=== PATIENT | male | born 1945 | race Two or more races ===

== ENCOUNTER 2019-01-07 05:49 | Inpatient (IN) | payer OTHER ==
[2019-01-07] VITALS (13 sets, daily range): BP systolic 100–130; BP diastolic 49–86
[~2019-01-07] VITALS: Ht 167.6 cm; Wt 81.6 kg
[~2019-01-07 05:49] MED LIST: NKM; NORCO 10-325 T1 EACH ORAL; SOMA350 MG PO
[2019-01-07] MEDS ORDERED: LR 1000ml 1,000 ML IVLG SCH (06:13)
[2019-01-07] MEDS ORDERED: Midazolam 2mg/2ml Inj IVP PRN (06:15)
[2019-01-07] MEDS ORDERED: Meperidine 50mg/ml Inj(FOR RIGORS ONLY) IVP PRN (06:15)
[2019-01-07] MEDS ORDERED: HYDROcodone/Acetamin 7.5/325 tab ORAL PRN ×2 (06:15→14:30)
[2019-01-07] MEDS ORDERED: Atropine Sulfate 0.4mg/ml inj IVP PRN (06:15)
[2019-01-07] MEDS ORDERED: LORazepam Inj 2mg/ml 1ml IV PRN (06:15)
[2019-01-07] MEDS ORDERED: Ketorolac 30mg Inj IV PRN ×2 (06:15)
[2019-01-07] MEDS ORDERED: HYDROcodone/Acetamin 5/325 tab ORAL PRN ×2 (06:15→14:30)
[2019-01-07] MEDS ORDERED: oxyCODONE HCL/Acetaminophen 5/325mg ORAL PRN (06:15)
[2019-01-07] MEDS ORDERED: fentaNYL 100 mcg/2 mL IV PRN (06:15)
[2019-01-07] MEDS ORDERED: Hydromorphone 0.5mg/0.5ml inj IVP PRN (06:15)
[2019-01-07] MEDS ORDERED: Labetalol 5mg/ml 20ml vial IV PRN (06:15)
[2019-01-07] MEDS ORDERED: DiphenhydrAMINE 50mg/ml Inj IVP PRN (06:15)
[2019-01-07] MEDS ORDERED: Acetaminophen (Non formulary) 100 ML IV ONE (06:15)
[2019-01-07] MEDS ORDERED: Metoclopramide 10mg/2ml Inj IVP PRN ×2 (06:15→14:00)
--- NOTE | 2019-01-07 06:15 | Anethesia Preoperative Eval ---
Anesthesia Pre-op PMH/ROS General Date of Evaluation: Jan 07, 2019 Time of Evaluation: 07:11 Anesthesiologist: Yocasta ASA Score: ASA 3 Mallampati Score Class I : Soft palate, uvula, fauces, pillars visible Class II: Soft palate, uvula, fauces visible Class III: Soft palate, base of uvula visible Class IV: Only hard plate visible Mallampati Classification: Class II Surgeon: Alistair Diagnosis: Back Pain Surgical Procedure: ALIF L5-S1, PSF L5-S1 Anesthesia History: none Family History: no anesthesia problems Allergies: Coded Allergies: No Known Allergies (Unverified , 01/07/19) Medications: see eMAR Patient NPO?: Yes Past Medical History Cardiovascular: Reports: HTN, other - HL Other: obesity - BMI 30 PSxH Narrative: R Shoulder, Cervical SX Anesthesia Pre-op Phys. Exam Physician Exam Vital Signs Date Time Temp Pulse Resp B/P (MAP) Pulse Ox O2 Delivery O2 Flow Rate FiO2 01/07/19 06:38 97.3 84 18 106/86 (93) 96 01/07/19 07:00 Room Air Constitutional: NAD Neurologic: CN 2-12 intact Cardiovascular: RRR Respiratory: CTA Gastrointestinal: S/NT/ND Airway Exam Mallampati Score: Class II MO: full ROM: limited Teeth: missing, intact Anesthesia Pre-op A/P Risk Assessment & Plan Assessment: ASA 3 Plan: GA Status Change Before Surgery: No Pre-Antibiotics Dru Grams Ancef IV Given Within 1 Hr of Incision: No Time Given: 07:31 Clay Rust MD Jan 07, 2019 06:15
[2019-01-07] MEDS ORDERED: Rocuronium Bromide 50mg/5ml Inj IV ONE (06:21)
[2019-01-07] MEDS ORDERED: Heparin 5000 units/ml inj ONE (06:35)
[2019-01-07] MEDS ORDERED: Thrombin 5000 units TOPIC ONE (06:36)
[2019-01-07] MEDS ORDERED: Ropivacaine 5mg/ml Vial 30ml INJ ONE ×2 (06:36→11:38)
[2019-01-07] MEDS ORDERED: Bacitracin 50000 Units Vial ONE (06:36)
[2019-01-07] MEDS ORDERED: Gelfoam Size TOPIC ONE (06:36)
[2019-01-07] MEDS ORDERED: Bupivacaine w/Epi 0.5% 30ml Vial INJ ONE (06:36)
[2019-01-07] MEDS ORDERED: Vancomycin 1gm vial IVPB ONE ×2 (06:37→09:42)
[2019-01-07] MEDS ORDERED: Lidocaine 1% MPF 10mg/ml 5ml ONE (06:42)
[2019-01-07] MEDS ORDERED: Sodium Chloride 10ml vial INJ ONE (06:42)
[2019-01-07] MEDS ORDERED: Dexamethasone 4mg/ml vial ONE (06:42)
[2019-01-07] MEDS ORDERED: ALENDRONATE SOD10 MG ORAL (06:49)
[2019-01-07] MEDS ORDERED: AMLODIPINE BESYL5 MG ORAL (06:49)
[2019-01-07] MEDS ORDERED: Neostigmine 1mg/ml 10ml Inj ONE (07:00)
[2019-01-07] MEDS ORDERED: ceFAZolin sod 2 GM in NS 55 ML IVPB ONE (07:00)
[2019-01-07] MEDS ORDERED: Sterile Water Irrig 1000ml IRRIG ONE (07:00)
[2019-01-07] MEDS ORDERED: Propofol 1,000mg/ 100ml btl IV ONE (07:00)
[2019-01-07] MEDS ORDERED: NS Irrig 1000ml ONE (07:00)
[2019-01-07] MEDS ORDERED: LR 1000ml ONE (07:00)
[2019-01-07] MEDS ORDERED: Glycopyrrolate 0.2mg/ml 1ml Vial ONE (07:00)
[2019-01-07] MEDS ORDERED: fentaNYL 100 mcg/2 mL IV ONE ×2 (07:01→11:06)
[2019-01-07 07:06] LABS: ANION GAP 11 mmol/L (5-15); BLOOD UREA NITROGEN 14 mg/dL (7-18); CALCIUM 8.4 MG/DL (8.5-10.1); CARBON DIOXIDE 23 MMOL/L (21-32); CHLORIDE 109 MMOL/L (98-107); CREATININE 1.2 MG/DL (0.55-1.30); POTASSIUM 3.6 MMOL/L (3.5-5.1); SODIUM 143 MMOL/L (136-145)
[2019-01-07 07:08] LABS: INR 0.9 (0.9-1.1)
[2019-01-07 07:09] LABS: BASOPHILS % (AUTO) 1.2 % (0.0-2.0); EOSINOPHILS % (AUTO) 9.6 % (0.0-3.0); HEMATOCRIT 44.9 % (42.0-52.0); LYMPHOCYTES % (AUTO) 22.5 % (20.0-45.0); MEAN CORPUSCULAR VOLUME 87 FL (80-99); NEUTROPHILS % (AUTO) 58.8 % (45.0-75.0); PLATELET COUNT 267 K/UL (150-450); RED BLOOD COUNT 5.16 M/UL (4.70-6.10); RED CELL DISTRIBUTION WIDTH 11.2 % (11.6-14.8); WHITE BLOOD COUNT 8.4 K/UL (4.8-10.8)
--- NOTE | 2019-01-07 07:58 | Immediate Post-Op Evaluation ---
Immediate Post-Op Evalulation Immediate Post-Op Evalulation Procedure: ALIF L5-S1, PSF L5-S1 Date of Evaluation: Jan 07, 2019 Time of Evaluation: 14:52 IV Fluids: 1300 LR Blood Products: 0 Estimated Blood Loss: 75 Urinary Output: 150 Blood Pressure Systolic: 124 Blood Pressure Diastolic: 70 Pulse Rate: 94 Respiratory Rate: 16 O2 Sat by Pulse Oximetry: 99 Temperature (Fahrenheit): 98 Pain Score (1-10): 2 Nausea: No Vomiting: No Complications 0 Patient Status: awake, reacts, patent, extubated, none Hydration Status: adequate Dru Grams Ancef IV Given Within 1 Hr of Incision: Yes Time Given: 07:31 Clay Rust MD Jan 07, 2019 07:58
[2019-01-07] MEDS ORDERED: ePHEDrine 50mg/ml Inj ONE (08:18)
--- NOTE | 2019-01-07 09:00 | Consultation ---
DATE OF CONSULTATION: 01/07/2019 VASCULAR SURGERY CONSULTATION CONSULTING PHYSICIAN: Anshul Hsu M.D. The patient is a 73-year-old male, who was admitted to undergo anterior lumbar interbody fusion of L5-S1 as determined by his spine surgeon, Dr. Eddie Sainz. Prior to today, the patient would typically have received my separate informed consent form, but the patient does not recall receiving these documents from my office. This form would introduce me and explain my role in the approach for the anterior lumbar spine surgery. It also outlined the possible risks and complications, including but not limited to hemorrhage, need for blood transfusions, retrograde ejaculation, wound infection, bowel or ureter injury, arterial or venous injury or thrombosis, and the remote chance of , etc. The patient was seen in the preoperative holding area with his daughter in attendance and was given the separate informed consent form, which was reviewed and all questions were answered. He was shown the site of the incision. He had palpable bilateral dorsalis pedis pulses. He was 5 feet 6 inches tall, weighing approximately 180 pounds, giving him a BMI of 29. That consent was signed once again with a nurse witness and signature as well, and then placed into the chart. He fully understood and wished to proceed. There were no contraindications and we would proceed with the proposed operation. Modesto Hutson JOB#: [id number] CC:
[2019-01-07] MEDS ORDERED: Bacitracin 50000 Units Vial IRRIG ONE (09:45)
--- NOTE | 2019-01-07 09:56 | Pre-Procedure Note/Attestation ---
Pre-Procedure Note/Attestation Complete Prior to Procedure Planned Procedure: not applicable Procedure Narrative: Stage 1 Anterior lumbar interbody fusion of L5S1 with bmp and allograft, Stage 2 Posterior wood laminectomy/dobbins shepherd osteotomy and pedicle screw fixation of L5S1 Indications for Procedure Pre-Operative Diagnosis: L5S1 Herniation and foraminal stenosis Attestation I attest that I discussed the nature of the procedure; its benefits; risks and complications; and alternatives (and the risks and benefits of such alternatives ), prior to the procedure, with the patient (or the patient's legal insurance representative). I attest that, if there was a reasonable possibility of needing a blood transfusion, the patient (or the patient's legal insurance representative) was given the [place] Department [employer] standardized written summary, pursuant to the Kelvin Nadir Blood Safety Act ([place] Health and Safety Code # 1645, as amended). I attest that I re-evaluated the patient just prior to the surgery and that there has been no change in the patient's H&P, except as documented below: Eddie Sainz MD Jan 07, 2019 09:56
--- NOTE | 2019-01-07 09:57 | Brief Operative Note ---
Immediate Post Operative Note Operative Note Chief Complaint: back pain and radiculopathy Pre-op Diagnosis: L5S1 Herniation and foraminal stenosis Procedure: Stage 1 Anterior lumbar interbody fusion of L5S1 with bmp and allograft, Stage 2 Posterior wood laminectomy/dobbins shepherd osteotomy and pedicle screw fixation of L5S1 Post-op Diagnosis: same as pre-op Findings: consistent w/pre-op dx studies Surgeon: Alistair Class C Truck Driver: Araceils Anesthesiologist: Yocasta Anesthesia: general Specimen: none Complications: none Condition: stable Fluids: IVF Estimated Blood Loss: minimal Drains: none Implant(s) used?: Yes - Stage 1 Nuvasive interlock sz 16, screws 25mmx4, Stage 2 synthes emergent 4x40mm Eddie Sainz MD Jan 07, 2019 09:57
[2019-01-07] MEDS ORDERED: Chloraseptic Spray 20mL Bottle ORAL PRN (10:00)
--- NOTE | 2019-01-07 11:05 | NUR ---
CASE MANAGEMENT:REVIEW 73 YR OLD MALE HERE FOR ELECTIVE SURGERY SI: BACK PAIN AND RADICULOPATHY 97.3//84 18 106/86 96% ON RA IS: TO SURGERY: ANTERIOR LUMBAR INTERBODY FUSION IV ANCEF Q8HRS IV DECADRON Q6HRS IVF@100/HR : TO MED/SURG POST OP
--- NOTE | 2019-01-07 12:37 | 48 Hour Post Anesthesia Eval ---
Post Anesthesia Evaluation Procedure: ALIF L5-S1, PSF L5-S1 Date of Evaluation: Jan 07, 2019 Time of Evaluation: 14:45 Blood Pressure Systolic: 124 0: 72 Pulse Rate: 81 Respiratory Rate: 16 Temperature (Fahrenheit): 98.2 O2 Sat by Pulse Oximetry: 97 Airway: patent Nausea: No Vomiting: No Pain Intensity: 3 Cardiopulmonary Status: Stable Mental Status/LOC: patient returned to baseline Follow-up Care/Observations: 0 Post-Anesthesia Complications: 0 Follow-up care needed: N/A Clay Rust MD Jan 07, 2019 12:37
--- NOTE | 2019-01-07 13:45 | NUR ---
NURSE NOTES: Shauna LU brought patient by bed in stable condition. Alert and oriented x4. No complain of pain or distress at this time. Skin intact and dry. Surgical dressing intact and dry. IV dressing intact and dry. Lau catheter patent and draining well. Bed lowest position. Call light within reach. Will continue to monitor.
[2019-01-07] MEDS ORDERED: Morphine Sulfate 2mg/ml Inj(IV/IM USE ONLY) IV PRN (14:00)
[2019-01-07] MEDS ORDERED: Morphine Sulfate 4mg/ml Inj (IV USE ONLY) IV PRN ×2 (14:00)
[2019-01-07] MEDS ORDERED: Naloxone 0.4mg/ml Inj IVP PRN (14:00)
--- NOTE | 2019-01-07 14:22 | NUR ---
NURSE NOTES: Spoke to regarding home medications and new order received. Order read back and carried out.
[2019-01-07] MEDS ORDERED: HYDROmorphone 1mg/ml Carpuject IVP PRN (14:30)
[2019-01-07] MEDS ORDERED: Milk of Magnesia 30ml Ud ORAL PRN (14:30)
--- NOTE | 2019-01-07 15:14 | NUR ---
HAND-OFF: Report given to Jose LU and Rosi LU. Patient in stable condition.
--- NOTE | 2019-01-07 15:20 | NUR ---
NURSE NOTES: Received report from TABITHA Oliveros. Rounding done with outgoing nurse. Pt a/o x 4, in bed. No respiratory distress noted. Denies any pain at this time. Family is at bedside. Lau catheter is in placed, yellowish color noted. Abdominal/back surgical site dressing is C/D/I. Call light within reach. Will continue to monitor.
[2019-01-07] MEDS: ceFAZolin sod 1 GM in D5W 55 ML IV SCH ×2 (15:22→23:13)
[2019-01-07] MEDS: NS w/KCl 20mEq 1000ml 1,000 ML IV SCH (15:22)
--- NOTE | 2019-01-07 16:45 | Operative Note - Dictated ---
DATE OF OPERATION: 01/07/2019 OPERATION: 1. Muscle sparing anterior abdominal retroperitoneal approach for anterior lumbar interbody fusion. 2. Plastic closure repair of abdominal wound. CO-SURGEONS: 1. Anshul Hsu M.D. 2. Eddie Sainz M.D. ANESTHESIA: General. PREOPERATIVE DIAGNOSIS: Herniated disk, L5-S1. POSTOPERATIVE DIAGNOSIS: Herniated disk, L5-S1. PROCEDURE IN DETAIL: Prior to surgery, the patient would typically have received my separate informed consent form mailed to his home with other documents as the patient does not recall receiving such documents. This form introduced me and explains my role in the approach for the anterior lumbar spine surgery. It also outlines the possible risks and complications, including, but not limited to hemorrhage, need for blood transfusion, wound infection, retrograde ejaculation, bowel or ureter injury, arterial or venous injury or thrombosis, and the remote chance of , etc. The patient was seen in the preoperative holding area with his daughter in attendance and was given the separate informed consent form, which was reviewed and any questions were answered. He was shown the site of the incision. He had palpable bilateral dorsalis pedis pulses. That consent was signed with a nurse witness and signature as well, and then placed into the chart. He fully understood and wished to proceed. There were no contraindications and we would proceed with the proposed operation. A preoperative vascular surgery consultation report was dictated. The patient was taken into the operating room and placed in the supine position. Using an endotracheal tube, he was placed under general anesthesia without difficulty. His abdomen was prepped and draped in the usual sterile manner. An appropriate time-out was obtained. A transverse incision was made in the left lower quadrant from the midline and carried down through the subcutaneous tissues down to the rectus fascia. Hemostasis was achieved using electrocautery. The rectus fascia was incised transversely and elevated off the anterior surface of the muscle for a distance of approximately 4 cm both caudad and cephalad. This would allow for retraction of the rectus muscle laterally later in the case noted to obtain direct anterior-posterior approach to the anterior surface of the spine. The inferior epigastric vessels were identified and preserved. Laterally, the retroperitoneal space was entered down to the left psoas muscle. The left ureter was identified and protected as it was mobilized with the peritoneum more medially until the left iliac artery was identified. Deep self-retaining retractors such as the [place] and [place] were utilized to hold the abdominal wall and peritoneal contents in place while further dissection was carried out. Careful blunt dissection was carried out below the bifurcation of the iliac vessels with several medial branches of the iliac vein were taken between hemoclips and transected. The middle sacral artery was taken between hemoclips and transected. Careful blunt dissection was carried out to preserve the sympathetic chains laterally as well as the parasympathetic plexus which lies anteriorly along the surface of the fifth lumbar vertebra. Further careful blunt dissection was utilized to expose the anterior surface of the multiple vertebral bodies and intervening disk space. Several retractor blades were now placed in all quadrants with the rectus muscle now retracted laterally, which allowed exposure and direct anterior-posterior approach to the anterior surface of the spine. A needle was inserted into the appropriate disk space and an x-ray was taken to verify the exposure. The spine surgeon then proceeded to perform diskectomy and fusion, which will be dictated in a separate report by the spine surgeon, Dr. Sainz. Antibiotic irrigation had been carried out. Tisseel was placed over the fusion area. Vancomycin powder was left in the wound. The retractor blades were removed. The integrity of the iliac vessels were then checked to make sure that there was no tear or thrombosis of the vein and that there was adequate flow through the artery with no evidence of spasm or thrombosis. A further check for hemostasis was made and the integrity of the ureter was verified. The peritoneum was allowed to return to its anatomical location and then anterior sheath approximated using continuous running suture of #1 Vicryl. The subcutaneous tissues were irrigated using dilute Betadine solution as well as antibiotic solution and hemostasis noted to be achieved. Plastic closure repair of the abdominal wound was continued using 2-0 Vicryl followed by skin approximation using continuous subcuticular suture of 3-0 Monocryl. Steri-Strips were applied. Telfa OpSite dressings were applied. The sponge, pads, needle, and instrument counts were reported as correct. Estimated blood loss was less than 50 mL. There were no complications during this part of the procedure. At completion of this part of the procedure, the patient had maintenance of palpable bilateral dorsalis pedis pulses and the pulse oximeter registered 100% on the left foot. The patient will remain in the operating room to undergo posterior instrumentation by the spine surgeon. Anshul Hsu M.D. DR: Cristina JOB#: [id number] CC:
[2019-01-07] MEDS: Dexamethasone 4mg/ml vial IVP SCH (17:47)
[2019-01-07] MEDS: Docusate 100mg cap ORAL SCH (17:47)
--- NOTE | 2019-01-07 19:41 | NUR ---
HAND-OFF: Report given to TABITHA Richardson. Pt is stable.
--- NOTE | 2019-01-07 19:42 | NUR ---
NURSE NOTES: received patient on bed, awake and verbally responsive. no SOB. not in any form of respiratory distress. denies any pain or discomfort.bed locked and in lowest position. call light and light button within easy reach. will continue plan of care.
--- NOTE | 2019-01-07 20:23 | NUR ---
NURSE NOTES: patient c/o pain on the surgical site in the lower abdomen. no bleeding or discharges on the site. norco 5/325mg given as ordered. offered fluids. assisted on repositioning. needs attended and met. bed locked and in lowest position. call light and light button within easy reach. will continue plan of care.
[2019-01-08] VITALS: BP 131/81
[2019-01-08] MEDS: Dexamethasone 4mg/ml vial IVP SCH ×3 (00:16→11:55)
[2019-01-08] MEDS: NS w/KCl 20mEq 1000ml 1,000 ML IV SCH ×3 (00:19→20:14)
--- NOTE | 2019-01-08 00:45 | Operative Note - Dictated ---
DATE OF OPERATION: 01/07/2019 Stage 1 of 2. SURGEON: Eddie Sainz M.D., Orthopaedic Spine Surgeon. EXPOSURE/SEWING MACHINE OPERATOR PLASTIC ZIPPER SURGEON: Anshul Hsu M.D. ANESTHESIA: General endotracheal anesthesia. PREOPERATIVE DIAGNOSES: 1. Intractable back pain. 2. Intractable leg pain. 3. Worsening radiculopathy. 4. Weakness. 5. Herniated nucleus pulposus, L5-S1 herniation. 6. Neural foraminal stenosis, L5-S1 herniation. POSTOPERATIVE DIAGNOSES: 1. Intractable back pain. 2. Intractable leg pain. 3. Worsening radiculopathy. 4. Weakness. 5. Herniated nucleus pulposus, L5-S1 herniation. 6. Neural foraminal stenosis, L5-S1 herniation. PROCEDURES PERFORMED: 1. Radical anterior lumbar intervertebral L5-S1 discectomy. 2. Anterior lumbar interbody fusion using NuVasive Brigade size 16 mm, 12-degree, with medium BMP and 5 mL of [place] allograft bone. 3. Anterior lumbar plating and fixation at L5-S1 using #4 screws from NuVasive 25 mm length 4. Anterior retroperitoneal exposure. 5. Supervision and interpretation of intraoperative fluoroscopy. 6. Supervision and interpretation of somatosensory-evoked potential and free-running EMG monitoring. ESTIMATED BLOOD LOSS: <100 mL. COMPLICATIONS: None. INDICATIONS FOR THE PROCEDURE: The patient is a 73-year-old male who presents for intractable back pain and radiculopathy, which is well documented in our clinical chart and records. We had a long discussion with Peter regarding definitive surgical treatment options. We had a long discussion with the patient regarding the risks, alternatives, and benefits of procedure. Our description of the risks included a discussion in person as well as a signed consent, which detailed all pertinent risks and the procedure itself. Briefly, our discussion included but was not limited to infection, bleeding, pseudarthrosis, spinal cord injury, neurovascular injury, dural tear, CSF leak, neuropathy, paralysis, permanent weakness/drop foot, paresthesias, blindness, palsy, and weakness. The patient understood there may be a need for revision surgery or additional procedures. Approach-related complications including dysphonia, dysphagia, blindness, permanent vocal cord and neural injury, hematoma, swallowing and breathing difficulty; medical complications including liver, kidney, shock, and cardiopulmonary failure; anesthesia complications including , swelling, damage to the musculature, larynx, esophagus, trachea, blood vessels and muscles and lungs during this surgical procedure. Injury to deeper structures may be temporary or permanent. The patient understood these and elected to proceed. A written and verbal consent was given. We discussed the pros and cons of all the alternatives. We discussed the uncertainties associated with the decision. Afterwards I assessed the patients understanding and explored their preferences. All questions were answered and no guarantees were given. Medical clearance was obtained prior to surgery. INTRAOPERATIVE FINDINGS: L5-S1 demonstrated a disc with decreased disc height. Once the disc was evaluated, along its posterior margin, I noted a tear in the posterior longitudinal ligament. This tear communicated with the posterior margins of a disc herniation. This disc was resected with a combination of Kerrison rongeurs and pituitaries. It was causing encroaching on the thecal sac posteriorly, right more than left side. DESCRIPTION OF PROCEDURE: Under the benefit of general endotracheal anesthesia and with the assistance of the entire operative team, the patient was moved from the rtioga onto the operative table in the supine position on a radiolucent frame. The head was secured and positioned appropriately. Bilateral arms were secured with Gel Pads and foam and all bony prominences were padded. The bilateral lower extremity SCD and NIECY hose were placed for DVT prophylaxis. A surgical timeout was called which corroborated our planned procedure. Preoperative antibiotics were administered within 30 minutes of the incision for prophylaxis. Using lateral radiography, the operative levels were delineated. An incision was marked based on our interpretation of lateral radiography and afterwards the body was prepped and draped in the usual sterile manner. The family was notified that we were ready to commence surgery and were called in the waiting room hourly for updates. An incision was based on our lateral fluoroscopic image to center the incision at the L5-S1 interspace. The wound was prepped and draped in the usual sterile fashion. Using a scalpel, a standard retroperitoneal exposure was performed by our vascular surgeon, Dr. Anshul Hsu and this is delineated in a separate operative note. After appropriate exposure at the L5-S1 disc space, we next turned our attention towards our radical discectomy. This was performed in standard fashion first beginning with a gentle mobilization of all superficial soft tissue overlying the disc space with Kittners. After this was performed, we marked our midline and confirmed our disc space on AP and lateral fluoroscopy. Next, using a 10 blade and long-handled scalpel, the disc was resected from the endplates in a box discectomy technique. Next, using Red elevators, the disc was mobilized off each endplate. After this, using large Leksell rongeurs, the entire disc was removed from the intervertebral space. All residual disc and cartilaginous endplates were resected using a combination of small and medium curettage, pituitaries, size 4 and size 6 Kerrison rongeurs. Next, the endplates were distracted in a parallel fashion using the drawer in jacquard loom and a 7.5 Thandle. At this point, the PLL was resected using a small curette and a Kerrison 4 rongeur. Next, the endplates were resected down to bleeding subchondral bone using a ring and box curette. For any residual bleeding which we encountered at this point, this was maintained and controlled with a combination of FloSeal, Gelfoam, and bipolar cautery. Afterwards, Tisseel was used to seal the discectomy site dorsally. Next, I then trialed the interspace for height, width, and depth. This was confirmed on fluoroscopy and once satisfied with our fit, we loaded and inserted a NuVasive Brigade size 16 mm, 12-degree, with medium BMP and 5 mL of [place] allograft bone under AP and lateral fluoroscopy. AP and lateral fluoroscopy confirmed excellent placement at the L5-S1 interspace. Afterwards, we turned our attention towards plating from the NuVasive Brigade Interlock system. This anterior lumbar plating and fixation at L5-S1 using #4 screws of 25 mm length. Final radiographs confirmed appropriate placement of all hardware, screws, and Brigade system along with a lutheran of the lumbar lordosis. Afterwards, Tisseel was used to seal the discectomy site ventrally. FloSeal and Zosyn antibiotics were placed directly on the anterior fusion site. The wounds were copiously irrigated with antibiotic-impregnated saline. Afterwards, FloSeal was placed to address residual bleeding. Powdered antibiotics were directly poured into the wound to provide for direct antibiosis. Next, I turned my attention to closure. Fascial closure was performed with 1-0 Vicryl suture. Subcutaneous tissues were reapproximated with 2-0 Vicryl. The superficial subcutaneous skin was closed with a running Monocryl and Dermabond. Dressings consisted of Tegaderm and 4 x 4 gauze. The patient tolerated the procedure well and after discussion with our vascular surgeon and our anesthesiologist, we made the determination to proceed with stage 2 of 2, our posterior-based approach. The details of stage 1 of the surgery were related to the patients family/representatives upon the conclusion of the procedure in the family waiting room. Stage 2 of 2. DATE OF OPERATION: 01/07/2019 SURGEON: Eddie Sainz M.D., Orthopaedic Spine Surgeon. SEWING MACHINE OPERATOR PLASTIC ZIPPER SURGEON: Anshul Hsu M.D. ANESTHESIA: General endotracheal anesthesia. PREOPERATIVE DIAGNOSES: 1. Intractable back pain. 2. Intractable leg pain. 3. Worsening radiculopathy. 4. Weakness. 5. Herniated nucleus pulposus, L5-S1 herniation. 6. Neural foraminal stenosis, L5-S1. POSTOPERATIVE DIAGNOSES: 1. Intractable back pain. 2. Intractable leg pain. 3. Worsening radiculopathy. 4. Weakness. 5. Herniated nucleus pulposus, L5-S1 herniation. 6. Neural foraminal stenosis, L5-S1. PROCEDURES PERFORMED: 1. Bilateral-sided Reardon laminectomy/De Jesus-Belcher osteotomy, and complete facetectomy at L5-S1. 2. L5-S1 posterolateral fusion using allograft bone, local autograft, and residual bone morphogenetic protein. 3. Percutaneous pedicle screw fixation at L5-S1 using Synthes Emergent screws 6 mm x 40 mm screws x4. 4. Confirmation of pedicle screw placement using neural monitoring. 5. Use of intraoperative microscope. 6. Supervision and interpretation of intraoperative fluoroscopy. 7. Supervision and interpretation of somatosensory-evoked potential and free-running EMG monitoring. ESTIMATED BLOOD LOSS: <50 mL. COMPLICATIONS: None. INTRAOPERATIVE FINDINGS: I noticed a significant amount of neuroforaminal stenosis which was bilateral, however, right more than left sided, with significant amount of facet joint hypertrophy causing neural foraminal stenosis bilaterally but more on the right side. DESCRIPTION OF PROCEDURE: Under the benefit of general endotracheal anesthesia and with the assistance of the entire operative team, the patient was moved from the radiolucent operative table in the prone position onto a Pancho frame. The head was secured and positioned appropriately. Bilateral arms were secured with Gel Pads and foam, and all bony prominences were padded. The bilateral lower extremity SCD and NIECY hose were placed for DVT prophylaxis. A surgical timeout was called which corroborated our planned procedure. Preoperative antibiotics were administered within 30 minutes of the incision for prophylaxis. Using lateral radiography, the operative levels were delineated. An incision was marked based on our interpretation of anterior, posterior, and lateral radiography and afterwards the body was prepped and draped in the usual sterile manner. The family was notified that we were ready to commence surgery and were called in the waiting room hourly for updates. An incision was based on our anterior, posterior, and lateral fluoroscopic image to center the incision at the L5-S1 interspace. The wound was prepped and draped in the usual sterile fashion. Using a scalpel, a midline incision was made and the subcutaneous tissue was mobilized so that within the fascia, two Karen-based incisions were made, one incision on right side focusing on his pedicle at L5-S1 through a percutaneous stab wound approach. All pedicles were cannulated in the exact same fashion for each level. This was performed in the following manner. The second incision was made slightly off midline and geared towards his L5-S1 interspace approached. Using Jamshidi needles under direct AP and lateral fluoroscopic visualization, I approached the L5-S1 pedicles with Jamshidi needles making sure to leave clearance along the medial pedicle boundary/wall, and next we advanced our bilateral pedicle screw entry points under AP and lateral fluoroscopy at both our pedicles bilaterally. Next, percutaneous screws were loaded on the left-hand side and on the contralateral side, right. Screws were inserted in percutaneous fashion and afterwards these screws were stimulated. Next, a jeremiah was lordosed and placed percutaneously through the incision. Next, we turned our attention to our De Jesus-Belcher type osteotomy, facetectomy, and decompression. This was performed at each level in the exact same fashion. Based on AP and lateral fluoroscopy, we centered this incision over the facet joints at L5-S1 of the contralateral side. This was taken down through the skin and subcutaneous tissues until the overlying pars facet joint of L5-S1 was visualized under microscopic visualization. There was severe pressure on this neural foramina as palpated with the [place] dental and a Hazel ball probe. The pars was then visualized on the contralateral side and this was carefully resected along with the lamina and superior articular process using a AppDevy AM8 drill bit. This was completely resected using a De Jesus-Belcher type osteotomy, medial laminar removal, and facetectomy. There was a significant amount of bleeding, which we encountered at this point and this was maintained and controlled with a combination of FloSeal, Gelfoam, and bipolar cautery. After complete resection of the facet joints, we noticed the lateral thecal sac margin and the neural elements. Next, I turned my attention to the stimulation of pedicle screws. All pedicle screws were stimulated with somatosensory-evoked potentials ranging over 20 milliampere with no response. Afterwards percutaneous rods from the Synthes pedicle screw system were inserted and placed percutaneously and locking caps were placed. Final radiographs confirmed appropriate placement of all hardware, screws, and our Brigade system along with a lutheran of the lumbar lordosis. The wounds were copiously irrigated with antibiotic-impregnated saline. Afterwards, FloSeal was placed to address residual bleeding. Powdered antibiotics were directly poured into the wound to provide for direct antibiosis. Next, I turned my attention to closure. Fascial closure was performed with 1-0 Vicryl suture. Subcutaneous tissues were reapproximated with 2-0 Vicryl. The superficial subcutaneous skin was closed with a running Monocryl and Dermabond. Dressings consisted of Tegaderm and 4 x 4 gauze. The patient tolerated the procedure well and will now be admitted to the spine floor for further observation. The details of the entire surgery were related to the patients family/representatives upon the conclusion of the procedure in the family waiting room. Eddie Sainz M.D. DR: Gaby JOB#: [id number] CC: AJ
[2019-01-08 03:58] VITALS: BP 139/85
[2019-01-08] MEDS: HYDROcodone/Acetamin 7.5/325 tab ORAL PRN (04:04)
--- NOTE | 2019-01-08 07:39 | NUR ---
HAND-OFF: Report given to TABITHA alegria.
--- NOTE | 2019-01-08 07:45 | NUR ---
NURSE NOTES: Received report from Debra LU. Patient is awake and oriented, no acute distress noted, reporting surgical site pain only with movement, patient states when he is sitting still he does not have pain, denies numbness/tingling in extremities, neuro check assessed intact. IV intact, patent, running IVF per order. Lau catheter to gravity drainage, draining clear, yellow urine. Three small, circled stains noted on anterior abdominal surgical dressing, posterior lower lumbar surgical dressing clean, dry, intact. Patient updated on plan of care for the day. Side rails upx2, bed low and locked, call light within reach.
[2019-01-08] MEDS: ceFAZolin sod 1 GM in D5W 55 ML IV SCH (07:57)
[2019-01-08 08:00] VITALS: BP 141/85
[2019-01-08] MEDS: Docusate 100mg cap ORAL SCH ×2 (09:17→18:00)
--- NOTE | 2019-01-08 11:12 | NUR ---
NURSE NOTES: Spoke to regarding Lau catheter and new order received. Order read back and carried out.
[2019-01-08 12:00] VITALS: BP 107/68
--- NOTE | 2019-01-08 12:04 | NUR ---
NURSE NOTES: Lau catheter removed per MD order. Patient tolerated removal well. Patient provided with urinal and educated to inform RN when he voids.
--- NOTE | 2019-01-08 13:30 | NUR ---
P.T Note: P.T evaluation completed and tx initiated per spinal protocol. See P.T evaluation for current functional status.
--- NOTE | 2019-01-08 15:41 | Cardiology Progress Note ---
Assessment/Plan Status Narrative 1. s/p Ant- Post LS spine fusion 2. HTN 3. COPD 4. Obesity 5. Possible Urinary retention Assessment/Plan Continue IV Fluids Clear liquids until able to pass flatus Ambulate Norvasc for BP control Check bladder scan in 1-2 hours, may need in-out cath Pain meds as per Dr. Sainz Check labs in AM Subjective Cardiovascular: Reports: no symptoms Respiratory: Reports: no symptoms Gastrointestinal/Abdominal: Reports: constipated, other - No flatus yet Genitourinary: Reports: other - david DC'd 3 hours ago- no urine output yet Subjective 01/07/19- S/p Ant- post LS spine fusion 01/08- doing OK. No N/V. Ambulating, tolerating PO fluids Objective Last 24 Hour Vital Signs Date Time Temp Pulse Resp B/P (MAP) Pulse Ox O2 Delivery O2 Flow Rate FiO2 01/08/19 12:00 97.4 79 16 107/68 (81) 95 01/08/19 09:17 97 141/85 01/08/19 09:00 Room Air 01/08/19 08:00 98.0 97 16 141/85 (103) 95 01/08/19 03:58 97.7 96 18 139/85 (103) 96 01/08/19 00:00 97.6 98 20 131/81 (98) 96 01/07/19 21:00 Room Air 01/07/19 20:00 98.4 97 20 130/77 (94) 96 01/07/19 15:45 97.5 100 20 109/72 (84) 95 General Appearance: WD/WN, no apparent distress Neck: supple Cardiovascular: normal rate, regular rhythm, no gallop/murmur Respiratory/Chest: lungs clear Abdomen: soft, no organomegaly, no mass, hypoactive bowel sounds, distended Extremities: non-tender, normal inspection, no calf tenderness, no swelling Intake and Output 01/07/19 01/08/19 19:00 07:00 Intake Total 1905 ml 1440 ml Output Total 475 ml 700 ml Balance 1430 ml 740 ml Intake Oral 150 ml 200 ml IV Total 1755 ml 1240 ml Output Urine Total 400 ml 700 ml Estimated Blood Loss 75 ml Jerman Simental MD Jan 08, 2019 15:40
[2019-01-08 16:00] VITALS: BP 104/70
--- NOTE | 2019-01-08 17:40 | NUR ---
NURSE NOTES: Patient voided 50mL of light ivonne colored urine without difficulty. Checked bladder scan per verbal order from Dr. Simental. Bladder scan showed 42mL in bladder s/p void.
--- NOTE | 2019-01-08 19:24 | NUR ---
HAND-OFF: Report given to Nelly LU.
--- NOTE | 2019-01-08 19:48 | NUR ---
NURSE NOTES: Received patient in bed, awake, alert, oriented, able to ambulate with steady gate, IV site is clean dry and intact, family at bedside, clear liquid diet, tolerating well, no acute distress noted. Call light is within reach, bed is in low position, locked, alarm is on. Will continue to monitor for comfort and safety.
[2019-01-08 20:00] VITALS: BP 132/75
[2019-01-09] VITALS: BP 126/74
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
[2019-01-09] MEDS: HYDROcodone/Acetamin 7.5/325 tab ORAL PRN ×2 (03:46→18:20)
[2019-01-09] MEDS: NS w/KCl 20mEq 1000ml 1,000 ML IV SCH ×2 (03:49→16:30)
[2019-01-09 04:00] VITALS: BP 131/74
--- NOTE | 2019-01-09 04:22 | NUR ---
HAND-OFF: Report given to Angella LU. Patient is in stable condition.
[2019-01-09 05:36] LABS: BASOPHILS % (AUTO) 0.2 % (0.0-2.0); EOSINOPHILS % (AUTO) 0.1 % (0.0-3.0); HEMATOCRIT 35.8 % (42.0-52.0); HEMOGLOBIN 12.3 G/DL (14.2-18.0); LYMPHOCYTES % (AUTO) 8.9 % (20.0-45.0); MEAN CORPUSCULAR VOLUME 89 FL (80-99); MONOCYTES % (AUTO) 7.4 % (1.0-10.0); NEUTROPHILS % (AUTO) 83.5 % (45.0-75.0); PLATELET COUNT 222 K/UL (150-450); RED BLOOD COUNT 4.01 M/UL (4.70-6.10); RED CELL DISTRIBUTION WIDTH 11.7 % (11.6-14.8); WHITE BLOOD COUNT 14.4 K/UL (4.8-10.8)
[2019-01-09 05:54] LABS: ANION GAP 8 mmol/L (5-15); BLOOD UREA NITROGEN 20 mg/dL (7-18); CALCIUM 7.7 MG/DL (8.5-10.1); CARBON DIOXIDE 24 MMOL/L (21-32); CHLORIDE 110 MMOL/L (98-107); CREATININE 1.2 MG/DL (0.55-1.30); POTASSIUM 4.2 MMOL/L (3.5-5.1); SODIUM 142 MMOL/L (136-145)
--- NOTE | 2019-01-09 06:59 | NUR ---
NURSE NOTE: Care resumed from Lali at 0445. Pt is stable, resting comfortably. VS are stable.
--- NOTE | 2019-01-09 07:26 | NUR ---
HAND-OFF: Report given to Tanya.
--- NOTE | 2019-01-09 07:45 | NUR ---
NURSE NOTES: Received report from Angella LU. Patient is awake and oriented, no acute distress noted, reporting no pain at this time. IVF running per order. Patient reports he is voiding without difficulty, patient and his report patient started passing flatus this morning around 0500, no flatus heard by RN as of this time, will follow up with MD regarding diet order. Posterior dressing clean and dry, anterior dressing has three small stains, all circled. Patient updated on plan of care for the day. Side rails upx2, bed low and locked, call light within reach.
[2019-01-09 08:00] VITALS: BP 122/84
[2019-01-09] MEDS: Docusate 100mg cap ORAL SCH ×2 (08:53→18:16)
--- NOTE | 2019-01-09 11:56 | NUR ---
CASE MANAGEMENT: REVIEW 01/08/2019 SI: BACK PAIN AND RADICULOPATHY. POD #1 Stage 1 Anterior lumbar interbody fusion of L5S1 with bmp and allograft, Stage 2 Posterior wood laminectomy/dobbins shepherd osteotomy and pedicle screw fixation of L5S1 T 98.1 HR 92 RR 18 B/P 132/75 SATS 92% ON RA LABS: NONE TODAY IS: KCL/NS @ 100 mL/HR NORVASC PO QD MED/SURG 01/09/2019 SI: BACK PAIN AND RADICULOPATHY. POD #2 Stage 1 Anterior lumbar interbody fusion of L5S1 with bmp and allograft, Stage 2 Posterior wood laminectomy/dobbins shepherd osteotomy and pedicle screw fixation of L5S1 T 98.1 HR 101 RR 18 B/P 122/84 SATS 96% ON RA LABS: WBC 14.4 CL 110 BUN 20 GLU 110 CA 7.7 IS: KCL/NS @ 100 mL/HR NORVASC PO QD MED/SURG
[2019-01-09 12:00] VITALS: BP 122/73
--- NOTE | 2019-01-09 13:30 | NUR ---
NURSE NOTES: Per chucky Sánchez to advance patient to regular diet now that patient is passing flatus. Order entered.
--- NOTE | 2019-01-09 14:45 | NUR ---
NURSE NOTES: Order received from Dr. Sainz to discharge patient today, MD aware of patient's elevated WBC, states ok to discharge as patient is asymptomatic.
--- NOTE | 2019-01-09 15:00 | Cardiology Progress Note ---
Assessment/Plan Status Narrative 1. s/p Ant- Post LS spine fusion 2. HTN 3. COPD 4. Obesity 5. Possible Urinary retention- resolved Assessment/Plan DC IV Fluids Diet advanced Ambulate [facility] for BP control DC home as per Dr. Sainz Pain meds as per Dr. Sainz F/U with PMD for BP control Discussed with and with RN. Subjective Cardiovascular: Reports: no symptoms Respiratory: Reports: no symptoms Gastrointestinal/Abdominal: Reports: constipated, other - had flatus, tolerated solids Genitourinary: Reports: no symptoms Subjective 01/07/19- S/p Ant- post LS spine fusion 01/08- doing OK. No N/V. Ambulating, tolerating PO fluids 01/08 - ambulating, pain controlled Objective Last 24 Hour Vital Signs Date Time Temp Pulse Resp B/P (MAP) Pulse Ox O2 Delivery O2 Flow Rate FiO2 01/09/19 12:00 98.6 93 16 122/73 (89) 97 01/09/19 09:00 Room Air 01/09/19 08:53 101 122/84 01/09/19 08:00 98.1 101 18 122/84 (97) 96 01/09/19 04:21 98.9 01/09/19 04:00 98.9 74 21 131/74 (93) 95 01/09/19 00:00 98.4 78 18 126/74 (91) 97 01/08/19 21:19 Room Air 01/08/19 20:00 98.1 92 18 132/75 (94) 92 01/08/19 16:00 98.5 85 16 104/70 (81) 94 Cardiovascular: normal rate, regular rhythm, no gallop/murmur Respiratory/Chest: lungs clear Abdomen: normal bowel sounds, soft, no organomegaly, distended Extremities: non-tender, normal inspection, no swelling Intake and Output 01/08/19 01/09/19 19:00 07:00 Intake Total 1655 ml 400 ml Output Total 550 ml 800 ml Balance 1105 ml -400 ml Intake Oral 700 ml IV Total 955 ml 400 ml Output Urine Total 550 ml 800 ml Laboratory Tests Test 01/09/19 04:50 White Blood Count 14.4 K/UL (4.8-10.8) H Red Blood Count 4.01 M/UL (4.70-6.10) L Hemoglobin 12.3 G/DL (14.2-18.0) L Hematocrit 35.8 % (42.0-52.0) L Mean Corpuscular Volume 89 FL (80-99) Mean Corpuscular Hemoglobin 30.7 PG (27.0-31.0) Mean Corpuscular Hemoglobin Concent 34.4 G/DL (32.0-36.0) Red Cell Distribution Width 11.7 % (11.6-14.8) Platelet Count 222 K/UL (150-450) Mean Platelet Volume 7.8 FL (6.5-10.1) Neutrophils (%) (Auto) 83.5 % (45.0-75.0) H Lymphocytes (%) (Auto) 8.9 % (20.0-45.0) L Monocytes (%) (Auto) 7.4 % (1.0-10.0) Eosinophils (%) (Auto) 0.1 % (0.0-3.0) Basophils (%) (Auto) 0.2 % (0.0-2.0) Sodium Level 142 MMOL/L (136-145) Potassium Level 4.2 MMOL/L (3.5-5.1) Chloride Level 110 MMOL/L (98-107) H Carbon Dioxide Level 24 MMOL/L (21-32) Anion Gap 8 mmol/L (5-15) Blood Urea Nitrogen 20 mg/dL (7-18) H Creatinine 1.2 MG/DL (0.55-1.30) Estimat Glomerular Filtration Rate mL/min (>60) Glucose Level 110 MG/DL (74-106) H Calcium Level 7.7 MG/DL (8.5-10.1) L Microbiology Date/Time Source Procedure Growth Status 01/07/19 06:36 Nasal Nares MRSA Culture - Final NO METHICILLIN RESISTANT STAPH AUREUS... Complete Jerman Simental MD Jan 09, 2019 15:00
[2019-01-09 16:00] VITALS: BP 135/77
--- NOTE | 2019-01-09 16:30 | NUR ---
NURSE NOTES: Patient provided with discharge instructions. Reviewed discharge education/handouts with patient and his daughter, both verbalized understanding of provided discharge education. All belongings given to patient, belongings and discharge instructions signed for. Per patient, prescription for pain medication was given to patient's daughter by Dr. Sainz. IV removed intact. Patient awaiting ride home.
--- NOTE | 2019-01-09 19:00 | NUR ---
NURSE NOTES: Patient discharged without distress. Transported to private vehicle via wheelchair by charge nurse.
--- NOTE | 2019-01-09 19:45 | Discharge Summary ---
DATE OF ADMISSION: 01/07/2019 DATE OF DISCHARGE: 01/09/2019 DATE OF ADMISSION: 01/07/2019. DATE OF DISCHARGE: 01/09/2019. PROCEDURE PERFORMED DURING ADMISSION: Anterior and posterior lumbar fusion L5-S1 as detailed in the operative note. REASON FOR ADMISSION: Herniation L5-S1. HOSPITAL COURSE/TREATMENT RENDERED: DISCHARGE PHYSICAL EXAM: 1. The patient was ambulating with and without the assistance of physical therapy. 2. Prior to discharge home, incision was clean and dry with minimal swelling. 3. Follows commands. 4. Alert and oriented. 5. Lau discontinued, voiding. 6. Incentive spirometer at bedside. 7. IVF hep locked. MOTOR: Demonstrates expected postoperative bulk and tone. Moves biceps, triceps, and deltoid musculature on command. Moves hip flexors, quadriceps, tibialis anterior, EHL, gastrocsoleus musculature on command as well. TREATMENT RENDERED: 1. Daily nursing care. 2. Physical Therapy. 3. Occupational Therapy. 4. Intravenous medications. 5. Oral medications. 6. Daily postoperative examinations by Spine surgery team. CONDITION OF PATIENT ON DISCHARGE: The condition on discharge is stable for discharge to home. DISCHARGE INSTRUCTIONS: Our specific instructions relating to physical activity, medications diet and follow-up care are detailed in our standard operative folder and were given to this patient prior to surgery. We will however summarize these briefly as stated below. Regarding physical activity we would like the patient to limit their flexion, extension and rotation. We also require a limitation on their bending lifting and twisting. All medication has been called in prior to surgery to their pharmacy of choice. They can resume their regular diet once tolerated. We would like them to shower and limit soaking the wound in a tub/Jacuzzi/the ocean for a period of one month or until the incision is completely healed. We will have them follow up in our office in three weeks time for their regularly scheduled appointment. They understand to call our office tomorrow to schedule the time for their three week followup appointment. The patient will notify us should they experience any increase in the severity of pain, redness/swelling/ or drainage from their incision. Eddie Sainz M.D. DR: Simon JOB#: [id number] CC:
== END 2019-01-09 19:00 | disposition home or self-care (01) | DRG 455 ==
LOC: SDSOVERFLO 05:49 → 3E 13:44
DX: M51.17 Intervertebral disc disorders with radiculopathy, lumbosacral region (principal); M48.07 Spinal stenosis, lumbosacral region; I10 Essential (primary) hypertension; J44.9 Chronic obstructive pulmonary disease, unspecified; V89.2XXS Person injured in unspecified motor-vehicle accident, traffic, sequela
CPT/HCPCS: 36415; 72020; 76000; 80048; 85025; 85610; 85730; 86850; 86900; 86901; 87081; 94003; 94150; J2405; J2710; J7030